=== PATIENT | female | born 2000 | race Caucasian/White ===

== ENCOUNTER 2023-05-05 17:34 | Observation (INO) | payer OTHER ==
[~2023-05-05] VITALS: Ht 162.6 cm; Wt 66.7 kg
[2023-05-05] MEDS ORDERED: ONDANSETRON 4 MG/2 ML VIAL IVP PRN (18:50)
[2023-05-05] MEDS ORDERED: LACTATED RINGERS 1,000 ML IV SCH (18:50)
[2023-05-05 18:55] VITALS: BP 118/71; PULSE 99; RESP 18; TEMP 97.9
[2023-05-05] MEDS ORDERED: NACL 0.9% 1,000 ML IV SCH (19:10)
[2023-05-05] MEDS ORDERED: cefTRIAXone 1,000 MG VIAL ONE (21:50)
== END 2023-05-05 23:10 | disposition home or self-care (01) ==
LOC: MLD 17:34
PROVIDERS: ADMIT Obstetrics & Gynecology; ATTEND Obstetrics & Gynecology
DX: O26.892 Other specified pregnancy related conditions, second trimester (principal); R10.9 Unspecified abdominal pain; R42 Dizziness and giddiness; Z3A.25 25 weeks gestation of pregnancy
CPT/HCPCS: 76805; 82948; 96365; G0378; J0696; Q0092; 81000; J7060